=== PATIENT | female | born 1960 | race Caucasian/White ===

== ENCOUNTER 2018-05-23 04:57 | Inpatient (IN) ==
--- NOTE | 2018-05-19 08:46 | History & Physical Report ---
Date of Service May 19, 2018 Date of Surgery: 05-23-18 Assessment & Plan (1) Osteoarthritis of right knee: Further care discussed with Dalila, at this point in time she has failed conservative measures and would like to proceed with a right total knee replacement. All risks and benefits of the procedure were discussed in detail. Plan on discharge will be home with home health physical therapy. DVT prophalaxis with TEDs, SCDs and will also place on aspirin 81 mg p.o. b.i.d. for a month postop. Patient will have follow up appointment in our office two weeks post op for staple/suture removal and re-evaluation. Patient otherwise has no other questions or concerns. History of Present Illness Chief Complaint: right knee pain Primary Care Provider: Prosper Rhodes Ms Palma is a 57 year old female who complains of right knee pain, presents for pre-op evaluation prior to right total knee replacement. she has a long standing history of right knee pain. She complains of pain, crepitus, decreased range of motion and instability on the right side. She states that the symptoms have been chronic non-traumatic. The symptoms occur constantly with intermittent worsening. Currently the patient states that the symptoms are moderate-severe. The pain is described as aching and throbbing and occassionally sharp. She rates her current pain as 7/10. The symptoms are aggravated by ascending stairs, daily activities, descending stairs, first steps while awake, weight bearing, walking and squatting. Dalila states that the symptoms are relieved by no specific activity. In addition to right knee pain the patient is also experiencing crepitus, decreased mobility, joint pain, limping, loss of motion, pain, pain after activity and stiffness. Prior NSAIDs include ibuprofen, aleve and Voltaren Gel. Prior pain medications include Tramadol. She has also undergone previous Cortisone and Visco injections in both of her knees. She does use a brace at times. Patient has had previous therapy. Patient has had previous arthroscopic surgery, on 02-02-18 Dr. Dotson performed Right knee scope partial medial meniscectomy, Chondplasty medial femoral condyle & patellofemoral joint, Excision Fat pad. 06-01-17 Dr. Dotson performed Right knee arthroscopy with partial medial meniscectomy partial lateral meniscectomy, Right knee chondroplasty medial femoral chondyle and patellofemoral joint. 09-30-16 Right knee: arthroscopy with anterior cruciate ligament reconstruction with allograft, partial medial meniscectomy, partial lateral meniscectomy. Allergies Allergy/AdvReac Type Severity Reaction Status Date / Time hydrocodone Allergy Mild itching Verified 05/12/18 10:44 Home Medications Home Medications Medication Instructions Recorded Confirmed Type estrogens-methyltestosterone 1 tab PO QAM 05/12/18 05/12/18 History multivitamin 1 tab PO QAM 05/12/18 05/12/18 History rabeprazole [Aciphex] 20 mg PO QAM 05/12/18 05/12/18 History sennosides-docusate sodium [Stool 1 tab PO QAM 05/12/18 05/12/18 History Softener-Laxative] Past Med/Surg History Medical History Chronic constipation DJD (degenerative joint disease) GERD (gastroesophageal reflux disease) Hiatal hernia Surgical History History of facial surgery jaw wiring r[facility] - "[facility] time [facility]" Hx of arthroscopy of left knee x2 Hx of arthroscopy of right knee x4 Hx of brain surgery 2003 - r/t [facility] [place] Hx of cholecystectomy Hx of hysterectomy with hx of benign disease or negative Pap smears Hx of total hysterectomy Family History Father Hypertension Social History Current Living Situation: Spouse Other Information That Helps Us Care for You: No Feels Safe at Home: Yes Safety Concerns: Feels Safe At This Time Smoking Status: Never smoker Hx Alcohol Use: Yes Alcohol type: beer Alcohol Intake Frequency: a few times a week Hx Substance Use: No Beliefs That Will Affect Care: None Preferred Language: Norwegian Communication Ability: Effective Review of Systems All systems reviewed & are unremarkable except as noted in HPI & below Constitutional: no fever, no chills, no sweats and no body aches Respiratory: no cough, no dyspnea and no dyspnea on exertion Cardiovascular: no chest pain, no dyspnea and no orthopnea Gastrointestinal: no abdominal pain, no nausea and no vomiting Musculoskeletal: as per Subjective / HPI Integumentary: no rash and no lesions Endocrine: no fatigue Physical Exam 2 Vital Signs (Past 24 Hours): Ht: 5ft Wt: 55.3kg BP: 108/64 Pulse: 70 Constitutional: WD/WN, vitals as above no acute distress Respiratory: normal respiratory effort, lungs clear to auscultation no respiratory distress, no labored breathing and does not use accessory muscles Cardiovascular: RRR, no murmur, no edema Gastrointestinal (Abdomen): normal bowel sounds, soft, nontender, no hepatosplenomegaly Musculoskeletal: Right Knee Examination: Dalila ambulates with a limp, she has overall varus alignment, there is no erythema, warmth, atrophy or ecchymosis noted. she does have a mild effusion, diffuse tenderness to the knee greatest medial compartment. well healed surgical incisions. negative apprehension test, mild crepitation with motion. knee is ligamentously stable, positive flexion circumduction both medial and lateral. no extensor lag. strength 5/5. pain with active and passive ROM. Range of motion 0/3/120. No pain with active/passive ROM of ankle. Lower Extremity Strength normal. Lower Extremity Neuro-vascular is normal Results & Data Diagnostic Findings right knee xray from 05-02-18 and 09-30-17 showing decreased joint space medial compartment, overall varus alignment. s/p ACL reconstruction with endobutton along lateral femoral condyle. no acute bony pathology noted, no loose bodies. osteophytes noted.
--- NOTE | 2018-05-19 11:12 | Anesthesiology Consultation ---
Date of Service May 19, 2018 Assessment & Plan (1) Encounter for pre-operative examination: Plan: PCP Clearance 05/10/18: "Patient is medically cleared for intended procedure." Chart Review Chart Review: Acceptable Risk for Surgery and Patient seen in Pre Admission Testing Teaching & Discussion Instructed NPO after midnight before surgery, except medications with 15 cc of water. Medication instructions provided according to the PAT guidelines. History Surgery Operation Date: 05/23/18 07:15 Proposed Procedures p Right Total Knee Arthroplasty - Nishant Dotson DO Height/Weight Height: 5 ft Weight: 55.5 kg Allergies Allergy/AdvReac Type Severity Reaction Status Date / Time hydrocodone Allergy Mild itching Verified 05/23/18 05:44 Medications Home Medications Medication Instructions Recorded Confirmed Last Taken estrogens-methyltestosterone 1 tab PO QAM 05/12/18 05/23/18 05/22/18 06:30 multivitamin 1 tab PO QAM 05/12/18 05/23/18 05/22/18 06:30 rabeprazole [Aciphex] 20 mg PO QAM 05/12/18 05/23/18 05/23/18 03:30 sennosides-docusate sodium [Stool 1 tab PO QAM 05/12/18 05/23/18 05/22/18 06:30 Softener-Laxative] Active Medications Generic Name Dose Route Start Last Admin Trade Name Freq PRN Reason Stop Dose Admin Acetaminophen 1,000 mg 05/23/18 06:00 05/23/18 06:23 Tylenol PO 05/23/18 18:00 1,000 mg PREOP DORITA Administration Celecoxib 200 mg 05/23/18 06:00 05/23/18 06:24 Celebrex PO 05/23/18 18:00 200 mg PREOP DORITA Administration Dexamethasone 8 mg 05/23/18 06:00 05/23/18 06:23 Decadron PO 05/23/18 18:00 8 mg PREOP DORITA Administration Famotidine 20 mg 05/23/18 06:00 05/23/18 06:24 Pepcid PO 05/23/18 18:00 20 mg PREOP DORITA Administration Gabapentin 600 mg 05/23/18 06:00 05/23/18 06:24 Neurontin PO 05/23/18 18:00 600 mg PREOP DORITA Administration Lactated Ringer's 1,000 mls @ 999 mls/hr 05/23/18 06:00 05/23/18 06:03 Lr IV 05/23/18 18:00 999 mls/hr .Q1H1M DORITA Administration Metoclopramide HCl 10 mg 05/23/18 06:00 05/23/18 06:24 Reglan PO 05/23/18 18:00 10 mg PREOP DORITA Administration Past Medical History Medical History Chronic constipation DJD (degenerative joint disease) GERD (gastroesophageal reflux disease) Hiatal hernia Past Family History Family History Father Hypertension Past Surgical History Surgical History History of facial surgery jaw wiring [facility] - "[facility]" Hx of arthroscopy of left knee x2 Hx of arthroscopy of right knee x4 Hx of brain surgery Craniotomy (hematoma evacuation? Pt states she had a "blood clot") 2003 - r[facility]t [facility] Hx of cholecystectomy Hx of total hysterectomy Past Anesthesia History No Hx of Anesthesia Complications and No Family Hx of Anesthesia Complications History of PONV No Motion Sickness Screening History of Motion Sickness: No Social History Smoking Status: Never smoker Do You Dip or Chew Tobacco: No Hx Alcohol Use: Yes Alcohol type: beer alcohol intake frequency: a few times a week Hx Substance Use: No Exercise / Class Metabolic Activity II 4-5 Yardwork/Stairs/Walk up hill (no CP or SOB with 1 FOS) Review of Systems Pt denies any recent chest pain, shortness of breath, palpitations, cough, fever or URI. Physical Exam Vital Signs Last Vital Signs Temp 36.5 C 05/23/18 06:01 Pulse 58 L 05/23/18 06:01 Resp 18 05/23/18 06:01 BP 140/78 05/23/18 06:01 Pulse Ox 99 05/23/18 06:01 BP: 117/76 P: 64bpm SPO2: 96% RA T: 98.1 F R: 12 ENMT Mouth: + dental restorations (few caps, one on upper front tooth) and + small oral opening; no chipped teeth and no loose teeth Thyromental Distance: < 3.5 Finger Breadths (3) Mallampati Class: IV Neck normal visual inspection; neck extension not limited Respiratory normal respiratory effort Auscultation: lungs clear to auscultation bilaterally Cardiovascular Rate/Rhythm: regular rate and regular rhythm Heart Sounds: no murmur Vessels: no carotid bruit Extremities: no edema Testing Electrocardiogram Date: 05/10/18 Findings: + SB @ (55) Low QRS voltages. No significant changes, consistent with 2010 EKG. Chest X-Ray Date: 05/19/18 Findings: + NAD Laboratory Results Blood Type O Positive 05/19/18 11:24 Antibody Screen NEGATIVE 05/19/18 11:24 PT 10.2 Seconds (9.0-12.0) 05/19/18 11:24 INR 1.0 (0.9-1.1) 05/19/18 11:24 APTT 28.8 Seconds (21.0-31.0) 05/19/18 11:24 Hemoglobin A1c 5.0 % (4.5-5.6) 05/19/18 11:24 Urine Color Yellow 05/19/18 11:24 Urine Appearance Clear (Clear) 05/19/18 11:24 Urine pH 7.5 (4.5-7.5) 05/19/18 11:24 Ur Specific [place] 1.016 (1.000-1.030) 05/19/18 11:24 Urine Protein Negative (Negative) 05/19/18 11:24 Urine Glucose (UA) Negative (Negative) 05/19/18 11:24 Urine Ketones Negative (Negative) 05/19/18 11:24 Urine Nitrite Negative (Negative) 05/19/18 11:24 Ur Leukocyte Esterase Negative (Negative) 05/19/18 11:24 05/19/18 11:24 Urine Culture - Final Urine,Clean Catch Group B Beta Strep Lactobacillus species 05/10/2018 WBC: 5.9 H/H: 13.2/40.1 PLATELETS: 249 SODIUM: 137.7 POTASSIUM: 4.7 CHLORIDE: 105.4 CO2: 30.8 BUN: 13.9 CREATININE: 0.60 GLUCOSE: 67
--- NOTE | 2018-05-19 11:20 | PAT Medication Instructions ---
Medication Instructions Date of Service May 19, 2018 Home Medications estrogens-methyltestosterone 1 tab PO QAM multivitamin 1 tab PO QAM rabeprazole [Aciphex] 20 mg PO QAM sennosides-docusate sodium [Stool Softener-Laxative] 1 tab PO QAM DO NOT take the morning of surgery multivitamin 1 tab PO QAM sennosides-docusate sodium [Stool Softener-Laxative] 1 tab PO QAM Take morning of surgery With a small sip of water, OTHERWISE NOTHING TO EAT OR DRINK AFTER MIDNIGHT: estrogens-methyltestosterone 1 tab PO QAM (unless otherwise specified by surgeon ) rabeprazole [Aciphex] 20 mg PO QAM Other Notes If you have any questions please call us at [phone] or [phone] or [phone] or [phone]
--- NOTE | 2018-05-19 11:47 | XRay Report ---
XR chest Pre-admission PA/Lat CLINICAL HISTORY: Preoperative evaluation. COMPARISON STUDY: No previous studies for comparison. FINDINGS: Lung volumes are normal. There is no consolidation or evidence for pulmonary edema. Cardiac size is normal. Mediastinal contours are normal. There are cholecystectomy clips. IMPRESSION: No acute cardiopulmonary findings. Electronically signed by: Juan F Holcomb M.D. 05/19/2018 11:45 AM
[2018-05-19 11:58] LABS: Appearance Urine Clear (Clear); Bilirubin Urine Negative (Negative); Color Urine Yellow; Glucose Urine UA Negative (Negative); Ketones Urine Negative (Negative); Leukocyte Esterase Urine Negative (Negative); Nitrite Urine Negative (Negative); Protein Urine Negative (Negative); Specific Gravity Urine 1.016 (1.000-1.030); Urobilinogen Urine Negative (Negative); pH Urine 7.5 (4.5-7.5)
[2018-05-19 12:05] LABS: Estimated Average Glucose 97 mg/dl
[2018-05-19 12:17] LABS: Partial Thromboplastin Ratio 1.1; Partial Thromboplastin Time 28.8 Seconds (21.0-31.0); Prothrombin Time 10.2 Seconds (9.0-12.0)
[2018-05-23] MEDS ORDERED: LR 15ML/HR IV SCH (06:00)
[2018-05-23] MEDS ORDERED: GABAPENTIN 300 MG x 2 PO SCH (06:00)
[2018-05-23] MEDS ORDERED: METOCLOPRAMIDE HCL 10 MG TABLET PO SCH (06:00)
[2018-05-23] MEDS ORDERED: ROPIVACAINE 0.5% HCL/PF 150 MG, BUPIVACAINE 0.5% MPF 30 ML, EPINEPHrine 30MG/30ML (OR U... INFIL SCH (06:00)
[2018-05-23] MEDS ORDERED: CEFAZOLIN 2000MG 2,000 MG/15 ML SYR IV SCH (06:00)
[2018-05-23] MEDS ORDERED: FAMOTIDINE 20 MG TAB PO SCH (06:00)
[2018-05-23] MEDS ORDERED: TRANEXAMIC ACID 1,000 MG **IV Pre-op IV SCH (06:00)
[2018-05-23] MEDS ORDERED: CEFAZOLIN 1000MG 1,000 MG/7.5 ML SYR IV SCH (06:00)
[2018-05-23] MEDS ORDERED: ACETAMINOPHEN 500 MG TAB PO SCH (06:00)
[2018-05-23] MEDS ORDERED: dexAMETHasone 4 MG TAB PO SCH (06:00)
[2018-05-23] MEDS ORDERED: CeleBREX 200 MG CAP PO SCH (06:00)
[2018-05-23] MEDS: LR 500ML BOLUS, THEN 15ML/HR IV SCH ×3 (06:03→21:38)
[2018-05-23] MEDS ORDERED: TRANEXAMIC ACID 1,000 MG **IV Intra-op IV SCH (06:30)
[2018-05-23] MEDS ORDERED: ROPIVACAINE 0.5% 5 MG/ML 30 ML VIAL ONE (06:33)
[2018-05-23] MEDS ORDERED: EPINEPHrine INJ 1 MG/ML AMP ONE (06:33)
[2018-05-23] MEDS ORDERED: BUPIVACAINE 0.5 % 5 MG/1 ML PF 10ML VIAL ONE (06:33)
[2018-05-23] MEDS ORDERED: MIDAZOLAM HCL 1 MG/ML 2ML VIAL ONE ×2 (06:45)
[2018-05-23] MEDS ORDERED: fentaNYL citrate 100 MCG/2 ML VIAL ONE (06:46)
[2018-05-23] MEDS ORDERED: LIDOCAINE HCL 2% 2 ML VIAL/AMP(20MG/ML) INFIL ONE (06:51)
[2018-05-23] MEDS ORDERED: PROPOFOL IV EMULSION 10 MG/ML 20 ML VIAL IV ONE (06:51)
[2018-05-23] MEDS ORDERED: ONDANSETRON INJ 2 MG/ML 2 ML VIAL ONE (06:52)
[2018-05-23] MEDS ORDERED: BACITRACIN INJ 50,000 UNIT VIAL ONE (07:05)
[2018-05-23] MEDS ORDERED: POVIDONE-IODINE OP SOLN 30 ML BTL ONE (07:05)
[2018-05-23] MEDS ORDERED: ORTHO JOINT ANESTHETIC ONE (07:05)
--- NOTE | 2018-05-23 07:22 | History & Physical Bridge Note ---
Date of Service May 23, 2018 History & Physical Bridge Note I have examined the patient, reviewed the History & Physical and in the interval since the performance of the History & Physical I have noted the following changes of clinical significance: no changes noted
[2018-05-23] MEDS ORDERED: ONDANSETRON INJ 2 MG/ML 2 ML VIAL IV PRN ×2 (08:53→11:18)
[2018-05-23] MEDS ORDERED: ePHEDrine sulfate 50 MG/ML AMP IV PRN (08:53)
[2018-05-23] MEDS ORDERED: ATROPINE SULFATE 0.1 MG/ML 10ML SYR IV PRN (08:53)
--- NOTE | 2018-05-23 08:56 | Operative Report ---
Post Operative Report Pre & Post Diagnosis Operation Date: 05/23/18 07:15 Pre-Op Diagnosis: RIGHT KNEE OSTEOARTHRITIS Post-Op Diagnosis: RIGHT KNEE OSTEOARTHRITIS Procedure Operation Date: 05/23/18 07:15 Actual Procedures p Right Total Knee Arthroplasty(Right) utilizing [employer] Nephew journey 2 patient matched total knee arthroplasty size 3 femur to tibia 12 polyethylene 26 round patella- Nishant Dotson DO Surgeon Nishant Dotson DO Planer Offbearer Foster LARRY Estimated Blood Loss 5 Findings Consistent with Post-Op Diagnosis Patient presents as a 57-year-old white female with severe end-stage DJD right knee varus alignment she is undergone 2 previous ACL reconstructions and multitude of arthroscopy she has had Visco supplementation PRP injections corticosteroid injections continues with complaints of pain and instability about her right knee she has subchondral sclerotic changes she has some marginal osteophytes subchondral cystic changes eburnated bone in the medial compartment patellofemoral compartment she is failed all attempts at conservative management including injections anti-inflammatories bracing relative rest presents for total knee arthroplasty Specimens Bone and cartilage Drains Medium bore Hemovac Complications none Disposition Accompanied Patient To Recovery: No Disposition: Recovery Room Indications Patient presents as a 57-year-old female who complains of ongoing pain through to her right knee no response to conservative measures including physical therapy anti-inflammatories relative rest activity modification the above intraoperative findings noted times surgery patient pseudo-ligamentous laxity with a moderate to large effusion as well she is failed attempts at injections bracing therapy relative rest activity modification presents for total knee arthroplasty Description of Procedure After proper prepping and draping of the Right lower extremity anterior midline incision was made over the region of the extensor extensor mechanism after meticulous hemostasis was obtained and maintained in subcutaneous tissues a medial parapatellar incision was made The patella was subluxed lateralward the medial lateral gutter were cleaned from any hypertrophic synovitis and scar tissue of the distal femoral block was placed and the distal femoral osteotomy cut was made subsequently the chamfers anterior and posterior osteotomy cuts were made utilizing the 4-in-1 block the tibia was subsequently subluxed anteriorward medial and ateral meniscal remnants were excised in their entirety remnants of the anterior and posterior cruciate ligaments were excised in their entirety excellent exposure of the proximal tibia was obtained the tibial osteotomy guide was placed on the proximal tibial osteotomy cut was made once again the knee was irrigated with copious amounts of sterile saline solution the patella was subsequently everted lateralward thickened scar tissue around the patella was removed the patella was subsequently cut utilizing a freehand technique and was drilled prepared for final preparation and placement of patella socially flexion-extension gaps were checked and the equal and symmetric trials were placed to the appropriate femoral and tibial trials with poly-spacer being placed for equal flexion and extension gaps and full range of motion including extension to 0 and flexion to 140 the trial components after having been taken to recovery range of motion was subsequently removed meticulous hemostasis was obtained and maintained subsequently a knee block injection of joint cocktail including ropivacaine 0.5% 150 mg. Bupivacaine 0.5 % epinephrine 1-200,030 mL's toradol 30 mg dexamethasone 4 mg ketamine 10 mg clonidine 100 micrograms normal saline solution 30 mg was infiltrated into the soft tissues of the posterior knee medial lateral gutters and periosteal synovium special attention was paid to protect neurovascular structures at all times subsequently trial components having been removed the knee was irrigated with sterile saline solution. debris was removed the proximal tibia was subsequently prepared and was made ready for the placement of the tibial component tibial component was also cemented and tamped into position the femoral component was subsequently placed and cemented in the position the patellar component was subsequently cemented in position because hemostasis once again obtained and maintained wound having been thoroughly irrigated with debridement and debridement lavage was performed as well as a medial parapatellar incision closed with #1 Vicryl in interrupted fashion subcutaneous was closed with #2 Vicryl skin was closed with skin clips. PA-C was necessary for prepping and drapping as well as wound closure of deep fascia Sub cutaneous tissue and skin and was necessary for the case. A sterile compressive dressing was placed patient was taken to recovery in stable condition of report dictated by Mauri I attest to the content of the Intraoperative Record and any orders documented therein. Any exceptions are noted below. I attest to the content of the Intraoperative Record and any orders documented therein. Any exceptions are noted below.
[2018-05-23] MEDS ORDERED: ePHEDrine sulfate 50 MG/ML SYR ONE (09:19)
--- NOTE | 2018-05-23 09:57 | XRay Report ---
XR knee RT 2V routine CLINICAL HISTORY: Surgical Post Op DEGENERATIVE ARTHRITIS COMPARISON: Outside study performed September 2017 DISCUSSION: There are postsurgical changes of a total right knee arthroplasty and patellar resurfacin g. The femoral tibial components appear well seated. Overlying surgical drains are evident. There is air within the soft tissues consistent with recent surgery. There is an old cortical fixation button at the level of the lateral femoral condyle. IMPRESSION: Postsurgical changes of a total right knee arthroplasty. Electronically signed by: Kevin Cuevas M.D. 05/23/2018 9:55 AM
[2018-05-23] MEDS: fentaNYL citrate 100 MCG/2 ML VIAL IV PRN ×4 (10:24→10:40)
--- NOTE | 2018-05-23 10:53 | Anesthesiology Progress Note ---
Date of Service May 23, 2018 Anesthesia Post Procedure Vital Signs Vital Signs: Temp Pulse Pulse Resp BP Pulse Ox 05/23/18 10:46 36.4 C L 88 15 114/75 97 05/23/18 10:36 75 14 118/69 96 05/23/18 10:26 81 14 105/79 95 05/23/18 10:15 84 14 126/75 93 05/23/18 10:05 95 H 13 111/76 93 05/23/18 09:55 84 15 99/62 L 100 05/23/18 09:45 84 17 103/63 100 05/23/18 09:35 36.3 C L 84 16 104/76 100 05/23/18 06:01 36.5 C 58 L 18 140/78 99 Pain Intensity Right Knee: Pain Intensity: 4 Notes Mental Status: alert / awake / arousable and participated in evaluation Nausea / Vomiting: adequately controlled Pain: adequately controlled Airway Patency, RR, SpO2: stable & adequate BP & HR: stable & adequate Hydration State: stable & adequate Neuraxial Anesthesia: was administered and sensory block resolved Anesthetic Complications: no major complications apparent and Pt Satisfied with anesthetic care
[2018-05-23] MEDS ORDERED: MAGNESIUM HYDROXIDE SUSP 30 ML UDC PO PRN (11:18)
[2018-05-23] MEDS ORDERED: METOCLOPRAMIDE HCL INJ 5 MG/ML 2 ML VIAL IV PRN (11:18)
[2018-05-23] MEDS ORDERED: NALOXONE HCL 0.4 MG/1 ML VIAL/CARP IV PRN (11:18)
[2018-05-23] MEDS ORDERED: BISACODYL 10 MG SUPP PR PRN (11:18)
[2018-05-23] MEDS: SODIUM CHLORIDE 0.9% 1000ML 1,000 ML IV SCH ×2 (12:25→21:41)
[2018-05-23] MEDS: ACETAMINOPHEN 500 MG TAB PO SCH ×2 (13:28→21:41)
[2018-05-23] MEDS: CEFAZOLIN 1000MG 1,000 MG/7.5 ML SYR IV SCH ×2 (13:29→21:41)
[2018-05-23] MEDS: KETOROLAC TROMETHAMINE 15 MG/ML VIAL IV SCH ×2 (13:29→20:29)
[2018-05-23] MEDS ORDERED: INFLUENZA ADMINISTRATION CHARGE ONE (14:45)
[2018-05-23] MEDS ORDERED: INFLUENZA VIRUS QUAD VACCINE 0.5 ML SYR IM ONE (14:45)
[2018-05-23] MEDS: OXYCODONE HCL IR 5 MG TAB (IMMEDIATE RELEASE) PO PRN ×2 (17:27→23:48)
[2018-05-23] MEDS: ASPIRIN 81 MG ECTAB PO SCH (20:30)
[2018-05-23] MEDS: DOCUSATE SODIUM 100 MG CAP PO SCH (20:30)
[2018-05-24] MEDS: KETOROLAC TROMETHAMINE 15 MG/ML VIAL IV SCH ×2 (01:45→09:10)
[2018-05-24] MEDS: ACETAMINOPHEN 500 MG TAB PO SCH ×3 (05:56→20:46)
[2018-05-24 07:15] LABS: Hematocrit (blood only) 31.6 % (37-47); Hemoglobin 10.5 g/dL (12.0-16.0); Mean Corpuscular Hgb Conc 33.2 g/dL (32-36); Mean Corpuscular Volume 98.8 fL (80-100); Platelet Count 192 K/uL (130-400); White Blood Count 9.42 K/uL (4.8-10.8)
[2018-05-24 07:45] LABS: Calcium 10.4 mg/dl (8.5-10.1); Creatinine Clr Calc Pharmacy 76.6 ml/min; Est GFR (African American) 115.4; Est GFR (Non-African American) 99.6; Potassium 4.6 mmol/L (3.5-5.1)
[2018-05-24] MEDS: PANTOprazole 40 MG TAB PO SCH (07:47)
--- NOTE | 2018-05-24 07:57 | Orthopedic Progress Note ---
Date of Service May 24, 2018 Assessment & Plan (1) Osteoarthritis of right knee: Postop day 1 status post right total knee arthroplasty. Begin PT and OT protocols. Weightbearing as tolerated. DVT prophylaxis with SCDs, MARCO hose, aspirin twice daily Pain management with acetaminophen, oxycodone, hydromorphone, Celebrex. DC planning -patient is planning on outpatient Physical therapy upon discharge. Subjective Postop day 1 status post right total knee arthroplasty. Patient is lying in bed awake and alert and oriented. She states that her knee still feels a bit numb and that pain is controlled. She denies shortness of breath, chest pain, lightheadedness. No other complaints noted. Hemovac drainage from the previous shift was 125 mL. Physical Exam 2 Vital Signs (Past 24 Hours): Last Vital Signs Temp 36.7 C 05/24/18 06:50 Pulse 52 L 05/24/18 06:50 Resp 18 05/24/18 06:50 BP 92/55 L 05/24/18 06:50 Pulse Ox 96 05/24/18 06:50 Physical Exam: Dressings are clean, dry, and intact. Calves are soft nontender. Neurovascular is intact. She has good strength with dorsiflexion and plantarflexion of the right foot. Results & Data Laboratory Results 05/24/18 05/24/18 Range/Units 06:56 06:56 WBC 9.42 (4.8-10.8) K/uL RBC 3.20 L (4.2-5.4) M/uL Hgb 10.5 L (12.0-16.0) g/dL Hct 31.6 L (37-47) % MCV 98.8 (80-100) fL MCH 32.8 (25-34) pg MCHC 33.2 (32-36) g/dL Plt Count 192 (130-400) K/uL Sodium 141 (136-145) mmol/L Potassium 4.6 (3.5-5.1) mmol/L Chloride 111 H (98-107) mmol/L Carbon Dioxide 26 (21-32) mmol/L Anion Gap 3.0 (3-11) BUN 10 (7-18) mg/dl Creatinine 0.63 (0.6-1.2) mg/dl Est Cr Clr Drug Dosing 76.6 ml/min Est GFR ( Amer) 115.4 Est GFR (Non-Af Amer) 99.6 BUN/Creatinine Ratio 16.0 (10-20) Glucose 96 (70-99) mg/dl Calcium 10.4 H (8.5-10.1) mg/dl
[2018-05-24] MEDS: DOCUSATE SODIUM/SENNA 50/8.6MG TAB PO SCH (09:10)
[2018-05-24] MEDS: DOCUSATE SODIUM 100 MG CAP PO SCH ×2 (09:10→20:46)
[2018-05-24] MEDS: ASPIRIN 81 MG ECTAB PO SCH ×2 (09:10→20:46)
[2018-05-24] MEDS: MULTIVITAMIN TAB PO SCH (09:10)
--- NOTE | 2018-05-24 10:21 | Anesthesiology Progress Note ---
Date of Service May 24, 2018 Anesthesia Post Procedure Vital Signs Vital Signs: Temp Pulse Pulse Resp BP BP Pulse Ox 05/24/18 06:50 36.7 C 52 L 18 92/55 L 96 05/24/18 03:41 95/60 L 05/24/18 03:39 36.8 C 59 L 16 85/51 L 87/42 L 98 05/23/18 23:30 36.6 C 52 L 16 94/56 L 88/56 L 97 05/23/18 20:11 36.6 C 56 L 18 103/61 99 05/23/18 15:39 36.7 C 77 18 92/52 L 96 05/23/18 14:26 99 H 18 97/62 L 91 05/23/18 13:19 93 H 18 102/68 98 05/23/18 12:19 91 H 18 104/69 96 05/23/18 11:39 74 16 104/65 97 05/23/18 11:10 36.7 C 102 H 16 120/73 98 05/23/18 10:46 36.4 C L 88 15 114/75 97 05/23/18 10:36 75 14 118/69 96 05/23/18 10:26 81 14 105/79 95 Pain Intensity Right Knee: Pain Intensity: 4 Notes Mental Status: alert / awake / arousable Nausea / Vomiting: adequately controlled Pain: adequately controlled Airway Patency, RR, SpO2: stable & adequate BP & HR: stable & adequate Hydration State: stable & adequate Neuraxial Anesthesia: was administered and sensory block resolved Anesthetic Complications: no major complications apparent and Pt Satisfied with anesthetic care
[2018-05-24] MEDS: OXYCODONE HCL IR 5 MG TAB (IMMEDIATE RELEASE) PO PRN ×3 (11:53→20:45)
[2018-05-24] MEDS: HYDROmorphone INJ 0.5 MG/0.5 ML SYR IV PRN ×2 (13:45→19:47)
[2018-05-24] MEDS: CeleBREX 200 MG CAP PO SCH (20:46)
[2018-05-25] MEDS: HYDROmorphone INJ 0.5 MG/0.5 ML SYR IV PRN ×2 (00:38→07:33)
[2018-05-25] MEDS: OXYCODONE HCL IR 5 MG TAB (IMMEDIATE RELEASE) PO PRN ×3 (04:00→13:21)
[2018-05-25] MEDS: ACETAMINOPHEN 500 MG TAB PO SCH (05:39)
[2018-05-25] MEDS: ASPIRIN 81 MG ECTAB PO SCH (07:37)
[2018-05-25] MEDS: PANTOprazole 40 MG TAB PO SCH (07:37)
[2018-05-25] MEDS: MULTIVITAMIN TAB PO SCH (07:37)
[2018-05-25] MEDS: DOCUSATE SODIUM/SENNA 50/8.6MG TAB PO SCH (07:37)
[2018-05-25] MEDS: DOCUSATE SODIUM 100 MG CAP PO SCH (07:37)
[2018-05-25] MEDS: CeleBREX 200 MG CAP PO SCH (07:38)
--- NOTE | 2018-05-25 07:49 | Orthopedic Progress Note ---
Date of Service May 25, 2018 Assessment & Plan (1) Osteoarthritis of right knee: Postop day 2 status post right total knee arthroplasty. PT/OT dvt proph with dru/scd/asa Pain management with acetaminophen, oxycodone, hydromorphone, Celebrex. DC planning -patient is planning on outpatient Physical therapy upon discharge. Subjective Postop day 2 status post right total knee arthroplasty. Patient is lying in bed awake and alert and oriented. having increased pain today, has needed the IV Dilaudid to control her pain. She denies shortness of breath, chest pain, lightheadedness. No other complaints noted. Musculoskeletal: as per Subjective / HPI Physical Exam 2 Vital Signs (Past 24 Hours): Last Vital Signs Temp 36.8 C 05/25/18 06:51 Pulse 63 05/25/18 06:51 Resp 18 05/25/18 06:51 BP 114/73 05/25/18 06:51 Pulse Ox 97 05/25/18 06:51 Constitutional: WD/WN, vitals as above no acute distress Musculoskeletal: Right Leg: NVDI, calf SNT, negative nolberto sign. Terri dressing intact, no erythema or drainage noted. DP palpable, able to wiggle toes/ankle movement without difficulty.
--- NOTE | 2018-05-26 07:24 | Discharge Summary ---
Date of Service Date of Discharge: May 25, 2018 Date of Admission: 05/23/18 Admission HPI Per Admitting Provider Ms Palma is a 57 year old female who complains of right knee pain, presents for pre-op evaluation prior to right total knee replacement. she has a long standing history of right knee pain. She complains of pain, crepitus, decreased range of motion and instability on the right side. She states that the symptoms have been chronic non-traumatic. The symptoms occur constantly with intermittent worsening. Currently the patient states that the symptoms are moderate-severe. The pain is described as aching and throbbing and occassionally sharp. She rates her current pain as 7/10. The symptoms are aggravated by ascending stairs, daily activities, descending stairs, first steps while awake, weight bearing, walking and squatting. Dalila states that the symptoms are relieved by no specific activity. In addition to right knee pain the patient is also experiencing crepitus, decreased mobility, joint pain, limping, loss of motion, pain, pain after activity and stiffness. Prior NSAIDs include ibuprofen, aleve and Voltaren Gel. Prior pain medications include Tramadol. She has also undergone previous Cortisone and Visco injections in both of her knees. She does use a brace at times. Patient has had previous therapy. Patient has had previous arthroscopic surgery, on 02-02-18 Dr. Dotson performed Right knee scope partial medial meniscectomy, Chondplasty medial femoral condyle & patellofemoral joint, Excision Fat pad. 06-01-17 Dr. Dotson performed Right knee arthroscopy with partial medial meniscectomy partial lateral meniscectomy, Right knee chondroplasty medial femoral chondyle and patellofemoral joint. 09-30-16 Right knee: arthroscopy with anterior cruciate ligament reconstruction with allograft, partial medial meniscectomy, partial lateral meniscectomy. Principal Diagnosis right knee osteoarthritis Discharge Exam Constitutional WD/WN, vitals as above no acute distress Musculoskeletal NVDI, calf SNT, negative nolberto sign. DP palpable, able to wiggle toes/ankle movement without difficulty. POONAM dressing clean dry and intact. expected post- operative bruising noted. Discharge Data Allergies Allergy/AdvReac Type Severity Reaction Status Date / Time hydrocodone Allergy Mild itching Verified 05/23/18 05:44 Consultations 05/23/18 11:18 Consult Case Management - Discharge Planning Routine Procedures Performed Operation Date: 05/23/18 07:15 Actual Procedures p Right Total Knee Arthroplasty(Right) - Nishant Dotson DO Ordered Studies 05/23/18 05:00 US - OR guided needle placemen Urgent 05/23/18 07:00 US - OR guided needle placemen Routine Hospital Course (1) Osteoarthritis of right knee: Postop day 2 status post right total knee arthroplasty. PT/OT dvt proph with marco/scd/asa Pain management with acetaminophen, oxycodone, hydromorphone, Celebrex. DC planning -patient is planning on outpatient Physical therapy upon discharge. Patient was a same day admission after undergoing a successful Right TKA. She tolerated the procedure well. Post-operatively, her activity was progressed and well tolerated. Please refer to daily progress notes and PT notes for complete details. After exam on 05/25/18, patient felt to be stable for discharge home with HHPT. Patient will f/u in the office in 2 weeks for further evaluation including x-rays and incision check, sooner if having any issues or concerns. Below are pertinent labs/studies during their hospital stay: Laboratory Results WBC 9.42 K/uL (4.8-10.8) 05/24/18 06:56 RBC 3.20 M/uL (4.2-5.4) L 05/24/18 06:56 Hgb 10.5 g/dL (12.0-16.0) L 05/24/18 06:56 Hct 31.6 % (37-47) L 05/24/18 06:56 MCV 98.8 fL (80-100) 05/24/18 06:56 MCH 32.8 pg (25-34) 05/24/18 06:56 MCHC 33.2 g/dL (32-36) 05/24/18 06:56 Plt Count 192 K/uL (130-400) 05/24/18 06:56 PT 10.2 Seconds (9.0-12.0) 05/19/18 11:24 INR 1.0 (0.9-1.1) 05/19/18 11:24 APTT 28.8 Seconds (21.0-31.0) 05/19/18 11:24 PTT Ratio 1.1 05/19/18 11:24 Sodium 141 mmol/L (136-145) 05/24/18 06:56 Potassium 4.6 mmol/L (3.5-5.1) 05/24/18 06:56 Chloride 111 mmol/L (98-107) H 05/24/18 06:56 Carbon Dioxide 26 mmol/L (21-32) 05/24/18 06:56 Anion Gap 3.0 (3-11) 05/24/18 06:56 BUN 10 mg/dl (7-18) 05/24/18 06:56 Creatinine 0.63 mg/dl (0.6-1.2) 05/24/18 06:56 Est Cr Clr Drug Dosing 76.6 ml/min 05/24/18 06:56 Est GFR ( Amer) 115.4 05/24/18 06:56 Est GFR (Non-Af Amer) 99.6 05/24/18 06:56 BUN/Creatinine Ratio 16.0 (10-20) 05/24/18 06:56 Glucose 96 mg/dl (70-99) 05/24/18 06:56 Estimat Average Glucose 97 mg/dl 05/19/18 11:24 Hemoglobin A1c 5.0 % (4.5-5.6) 05/19/18 11:24 Calcium 10.4 mg/dl (8.5-10.1) H 05/24/18 06:56 Urine Color Yellow 05/19/18 11:24 Urine Appearance Clear (Clear) 05/19/18 11:24 Urine pH 7.5 (4.5-7.5) 05/19/18 11:24 Ur Specific Reading 1.016 (1.000-1.030) 05/19/18 11:24 Urine Protein Negative (Negative) 05/19/18 11:24 Urine Glucose (UA) Negative (Negative) 05/19/18 11:24 Urine Ketones Negative (Negative) 05/19/18 11:24 Urine Blood Negative (Negative) 05/19/18 11:24 Urine Nitrite Negative (Negative) 05/19/18 11:24 Urine Bilirubin Negative (Negative) 05/19/18 11:24 Urine Urobilinogen Negative (Negative) 05/19/18 11:24 Ur Leukocyte Esterase Negative (Negative) 05/19/18 11:24 Blood Type O Positive 05/19/18 11:24 Antibody Screen NEGATIVE 05/19/18 11:24 Total Time Total Time Spent Total Time Spent (In Minutes): 20 Total Time Includes: Examination of the Patient, Discharge Planning and Medication Reconciliation Discharge Plan Discharge Items Patient Disposition: Home - Self-Care Reason For Visit: RIGHT KNEE OSTEOARTHRITIS Discharge Diagnosis: right total knee replacement Condition: Good Discharge Goals: Decrease discomfort, Improve function and Increase independence Activity: Per 'Additional Instructions' section Lifting: Wait until after follow-up appointment Exercise/Sports: Wait until after follow-up appointment Driving/Machine Use Comment: no driving until cleared by your physician Weightbearing: Right weightbearing Weightbearing Comment: WBAT with walker Non-emergency contact: Primary Care Provider and Surgeon Call non-emergency contact if: you have any medication questions, your temperature is above 101, your wound has increased redness, your wound has increased drainage and your wound pain has increased Follow-up/Referrals: Prosper Rhodes [Primary Care Provider] - Diet: Regular Addtl Provider Instructions: ACTIVITY RECOMMENDATIONS: SELF CARE INSTRUCTIONS AFTER TOTAL KNEE REPLACEMENT A. You may need to continue a physical therapy program after discharge from the hospital. There are several options available to you. Your doctor will assist you in selecting the best one for you. 1. An out-patient facility 2 to 3 times a week for therapy or home therapy. 2. Continue working on all exercises taught to you in the hospital. Your goals should be to increase bending of your knee to 90 degrees and beyond and to fully straighten your knee. B. You may progress at your own pace from walking with a walker or crutches to a cane; then to no assistive devices. C. Make walking a part of your daily routine. Be up as much as comfortable with rest periods throughout the day. Rest with leg elevation is very important. Use the ice wrap frequently for the first 3-4 weeks. D. There are no restrictions on activities. You may ride in a car, shop, participate in marketing copywriter and all social activities. E. Wear the long elastic stockings (MARCO hose) 20 hours a day for 2 weeks after surgery. They can be removed several times a day for laundering and for a bath. F. You may shower, no tub baths until cleared by your doctor. SPECIAL CARE INSTRUCTIONS: VERY IMPORTANT TO READ AND REVIEW A. There are a few signs you need to watch for after you are home. Call [facility] if you notice any of the followin. Increased severe knee pain. Some pain is expected especially when you exercise. 2. Increased swelling in your leg or knee; pain or swelling of the calf muscle in either lower leg. 3. Any fluid drainage from the incision. 4. Shortness of breath or chest pain. B. Please call [facility] at if you have any concerns or questions about your operation or recovery. The doctor or his nurse will return your call promptly. C. You must take antibiotics before dental work, bladder, bowel or other surgery. Your doctor will provide you with a permanent care to carry describing this precaution. IMPORTANT: * REMEMBER TO TAKE ASPIRIN, 81 MG, TWICE DAILY FOR 4 WEEKS UNLESS OTHERWISE DIRECTED. THIS IS YOUR BLOOD THINNER. * HIGH RISK PATIENTS MAY BE PRESCRIBED A STRONGER BLOOD THINNER. THIS WILL BE PROVIDED AT DISCHARGE. * CALL IF INCREASED PAIN, REDNESS, DRAINAGE OR FEVER GREATER THAT 101. * WEAR MARCO HOSE 20 HOURS PER DAY FOR 2 WEEKS. * POONAM Dressing- This is a large suction dressing covering your incision. This will help pull any excess drainage from the wound and allow your incision to heal properly. You may shower with this if you can keep the unit outside of the shower. If any bleeding or leakage is noted please call your doctor's office. This will remain on your incision for 7 days and then should be removed . This can be done yourself or by the home nursing staff if applicable. The entire unit is disposable once removed. Once removed, keep incision clean and dry. If redness or drainage is noted, please call your surgeon. DERMABOND Prineo- This is a mesh tape dressing that is covered with glue. It should remain in place until the incision is properly healed, usually 10-14 days. This dressing is designed to naturally slough off. You may trim the excess mesh tape as it peels off. Incision may be briefly wet in a shower. Dry immediately by blotting with a clean, dry towel. Do not bath or swim until instructed by your doctor. Do not scratch, rub, or pick at the dressing. Do not apply any topical ointments or lotions until dressing is completely removed and/or instructed by your doctor. There may be a small piece of suture material at one end of your incision. Do not pull or trim this. If it is bothersome or catching on clothing, you may cover it with a band-aid. FOLLOW UP VISIT: If appointment is not already scheduled: Please call [facility] to make a follow-up appointment for 2 weeks after your surgery at . Prescriptions: New celecoxib [Celebrex] 200 mg Capsule 200 mg PO BID 30 Days Qty: 60 RF: 0 aspirin [Ecotrin Low Strength] 81 mg Tablet,Delayed Release (Dr/Ec) 81 mg PO BID 30 Days Qty: 60 RF: 0 acetaminophen [Pain Reliever] 500 mg Tablet 1,000 mg PO Q8 14 Days Qty: 84 RF: 0 oxycodone 5 mg Tablet 5 - 10 mg PO Q4H PRN (Reason: pain) Qty: 30 RF: 0 cefadroxil 500 mg capsule 500 mg PO BID 10 Days Qty: 20 RF: 0 Continue multivitamin Tablet 1 tab PO QAM RF: 0 rabeprazole [Aciphex] 20 mg Tablet,Delayed Release (Dr/Ec) 20 mg PO QAM RF: 0 sennosides-docusate sodium [Stool Softener-Laxative] 8.6-50 mg Tablet 1 tab PO QAM RF: 0 estrogens-methyltestosterone 1.25-2.5 mg Tablet 1 tab PO QAM RF: 0 Stand-Alone Forms: [facility], Opioid Pain Management Discharge Orders: Discharge Order (Routine); Ordered 05/25/18 Ordered By: Foster Darling Admission Data Admit Date/Time: 05/23/18 11:24 Attending Provider: Nishant Dotson Admit Provider: Nishant Dotson Primary Care Provider: Prosper Rhodes Service: Surgical Services Other Interventions: Discharge Summary Assessment (RN) Last Done: 05/25/18 11:40 Pending Studies at Discharge: No DC Date/Time DO NOT enter until pt leaves facility: 05/25/18 14:20
== END 2018-05-25 14:20 | disposition home or self-care (01) | DRG 470 ==
LOC: ASU 04:57 → 3E 11:24